=== PATIENT | male | born 1970 | race Caucasian/White ===

== ENCOUNTER → 2017-08-08 | Outpatient (CLI) | payer OTHER ==
[~2017-08-08] MED LIST: ASPI81EC PO; BENAML20/5 PO; BRILLINTA PO; CARV3.125 PO; DIAZ5 PO; LISI20 PO; METF500 PO; ONGLYZA PO; OXYACE5T PO
[2017-08-08 11:52] LABS: Creatinine, Urine Random 53.9 mg/dL (27.00-270.00); Protein, Urine Random 19.5 mg/dL (0.0-11.9)
== END ==
LOC: OLS 10:16 → LAB SHORT 10:16
PROVIDERS: Internal Medicine
DX: R80.9 Proteinuria, unspecified (principal)
CPT/HCPCS: 82570; 84156

== ENCOUNTER 2018-05-09 10:35 | Emergency (ER) | payer OTHER ==
[~2018-05-09] VITALS: Ht 182.9 cm; Wt 120.2 kg
[2018-05-09 12:54] LABS: Hematocrit 44.7 % (37.0-53.0); Hemoglobin 15.5 g/dL (13.5-17.5); Mean Corpuscular HGB 31.8 pg (26.0-34.0); Mean Corpuscular HGB Conc 34.7 g/dL (31.5-36.5); Mean Corpuscular Volume 92 fL (80-100); Mean Platelet Volume 9.1 fL (9.1-12.4); Platelet Count 162 K/mm3 (150-400); RDW Coefficient Variation 11.9 % (11.7-14.2); Red Blood Cell Count 4.88 M/mm3 (4.30-5.90); White Blood Cell Count 9.87 K/mm3 (4.00-11.30)
[2018-05-09 13:15] LABS: Alanine Aminotransfer (ALT/SGP 35 U/L (12-78); Albumin, Blood 3.9 g/dL (3.4-5.0); Albumin/Globulin Ratio 1.2 (0.8-1.8); Alk Phos 73 U/L (50-136); Anion Gap 8 mmol/L (6-16); Aspartate Aminotrans (AST/SGOT 18 U/L (12-37); Bilirubin, Total 0.7 mg/dL (0.1-1.0); Blood Urea Nitrogen 22 mg/dL (8-24); Bun/Creatinine Ratio 19.1 (12.0-20.0); CO2, Blood 26 mmol/L (21-32); Chloride, Blood 106 mmol/L (98-108); Creatinine, Blood 1.15 mg/dL (0.60-1.20); Globulin, Blood 3.3 g/dL (2.2-4.0); Glomerular Filtration Rate >60 (60-); Glucose, Blood 135 mg/dL (70-99); Potassium, Blood 3.9 mmol/L (3.5-5.5); Sodium, Blood 140 mmol/L (136-145); Total Protein, Blood 7.2 g/dL (6.4-8.2)
[2018-05-09 13:56] LABS: BAND PERCENT MAN 8 % (0-8); BASOPHILS PERCENT MAN 0 % (0-2); EOSINOPHILS PERCENT MAN 0 % (0-6); LYMPHOCYTES ABSOLUTE MAN 0.59 K/mm3 (0.84-5.20); LYMPHOCYTES PERCENT MAN 6 % (21-46); MONOCYTES ABSOLUTE MAN 0.29 K/mm3 (0.16-1.47); MONOCYTES PERCENT MAN 3 % (4-13); NEUTROPHILS ABSOLUTE MAN 8.98 K/mm3 (1.96-9.15); SEG NEUTROPHILS PERCENT MAN 83 % (41-73); TOTAL CELLS COUNTED 100
[2018-05-09 16:07] LABS: Influenza A Negative (NEGATIVE); Influenza B Negative (NEGATIVE)
[2018-05-09 16:17] LABS: Source, Urine Voided
[2018-05-09 16:19] LABS: Bilirubin, Urine Neg (Neg); Blood, Urine Neg (Neg); Glucose Qualitative, Urine 3+ (Neg); Ketones, Urine 2+ (Neg); Leukocyte Esterase, Urine 1+ (Neg); Nitrite, Urine Neg (Neg); Protein, Urine 3+ (Neg); Specific Gravity, Urine 1.015 (1.003-1.022); Urobilinogen, Urine NORM (Normal)
[2018-05-09 16:26] LABS: Appearance, Urine Hazy (Clear); Color, Urine Yellow (P-Yellow)
[2018-05-09 16:27] LABS: Calcium Oxalate Crystals Many /hpf
[2018-05-09 16:28] LABS: Bacteria Few /hpf; Red Blood Cells, Urine 0-2 /hpf (0-2); Squamous Epithelial Cells Not Seen /hpf (Few); White Blood Cells, Urine 0-2 /hpf (0-5)
== END 2018-05-09 16:55 | disposition home or self-care (01) ==
LOC: ER 10:35
PROVIDERS: Emergency Medicine
DX: K80.80 Other cholelithiasis without obstruction (principal); I25.10 Atherosclerotic heart disease of native coronary artery without angina pectoris; E11.65 Type 2 diabetes mellitus with hyperglycemia; R42 Dizziness and giddiness; Z79.84 Long term (current) use of oral hypoglycemic drugs; Z79.82 Long term (current) use of aspirin; Z79.899 Other long term (current) drug therapy; I10 Essential (primary) hypertension; I25.2 Old myocardial infarction
CPT/HCPCS: 36415; 71046; 76705; 80053; 81001; 83690; 85025; 87086; 87804; 93005; 93010; 96361; 96374; 99284-25; J0780; J7030

== ENCOUNTER 2021-11-14 08:40 | Day surgery (SDC) | payer OTHER ==
[~2021-11-14] VITALS: Ht 182.9 cm; Wt 122.7 kg
[~2021-11-14 08:40] MED LIST changes: +ALPR1 PO; +Azor 5-40 MG T1 EACH PO; +BUPR150ER PO; +CLOP75 PO; +ELFOLATE7.5 MG PO; +LITH300ER PO; +METF500C PO; +NITR.4SL SL; +OZEMPIC2 MG/0.75; +PRAM.125 PO
[2021-11-14] MEDS ORDERED: ATOR40TA PO (09:27)
[2021-11-14] MEDS ORDERED: METOPROLOL SUCC25 MG PO (09:28)
--- NOTE | 2021-11-14 12:37 | NUR ---
PT BACK IN RECOVERY FROM [facility]. FAMILY AT BEDSIDE. DR WANG AT BEDSIDE DSICUSSING PLAN OF CARE.
--- NOTE | 2021-11-14 13:55 | NUR ---
2 cc removed from tr band. no bleeding noted. site around band soft and non-tender per pt.
--- NOTE | 2021-11-14 14:05 | NUR ---
2cc removed from band. no bleeding noted. site soft and non-tender.
--- NOTE | 2021-11-14 14:16 | NUR ---
2cc removed from tr band. no bleeding noted. site soft and non-tender.
--- NOTE | 2021-11-14 14:47 | NUR ---
tr band fully deflated. no bleeding noted. site soft and non-tender.
--- NOTE | 2021-11-14 15:34 | NUR ---
pt given dc instructions and verbalized understanding. iv out. tr band removed. cloth dot placed. arm board and sling applied. pt taken to car via [place] by cielo jeong and pt's manda.
== END 2021-11-14 15:00 | disposition home or self-care (01) ==
LOC: MHTC 08:40
DX: T82.855A Stenosis of coronary artery stent, initial encounter (principal); Y71.8 Miscellaneous cardiovascular devices associated with adverse incidents, not elsewhere classified; I25.82 Chronic total occlusion of coronary artery; I25.118 Atherosclerotic heart disease of native coronary artery with other forms of angina pectoris; I10 Essential (primary) hypertension; E11.9 Type 2 diabetes mellitus without complications; G47.33 Obstructive sleep apnea (adult) (pediatric); E78.5 Hyperlipidemia, unspecified; Z79.82 Long term (current) use of aspirin; Z79.899 Other long term (current) drug therapy
CPT/HCPCS: 76937; 93306; 93454; 99152; A9270; C1769; C1887; C1894; J1644; J2250; J3010; J7030; J7050; Q9967

== ENCOUNTER 2022-11-27 10:24 | Day surgery (SDC) | payer OTHER ==
[~2022-11-27] VITALS: Ht 182.9 cm; Wt 128.9 kg
[~2022-11-27 10:24] MED LIST changes: +ATOR40TA PO; +METOPROLOL SUCC25 MG PO
[2022-11-27] MEDS ORDERED: JARDIANCE10 MG (11:22)
[2022-11-27 14:20] VITALS: BP 145/90
== END 2022-11-27 14:18 | disposition home or self-care (01) ==
LOC: ORSCSDS 10:24
PROVIDERS: Surgery
PROC: 0DBP8ZX Excision of Rectum, Via Natural or Artificial Opening Endoscopic, Diagnostic (ICD-10-PCS; principal; 2022-11-27 11:45)
PROC: 0DBH8ZX Excision of Cecum, Via Natural or Artificial Opening Endoscopic, Diagnostic (ICD-10-PCS; principal; 2022-11-27 11:45)
PROC: 0DBL8ZX Excision of Transverse Colon, Via Natural or Artificial Opening Endoscopic, Diagnostic (ICD-10-PCS; principal; 2022-11-27 11:45)
DX: Z12.11 Encounter for screening for malignant neoplasm of colon (principal); Z80.0 Family history of malignant neoplasm of digestive organs; D12.0 Benign neoplasm of cecum; D12.3 Benign neoplasm of transverse colon; D12.8 Benign neoplasm of rectum; G47.33 Obstructive sleep apnea (adult) (pediatric); I25.10 Atherosclerotic heart disease of native coronary artery without angina pectoris; I25.2 Old myocardial infarction; I10 Essential (primary) hypertension; E78.5 Hyperlipidemia, unspecified; E11.9 Type 2 diabetes mellitus without complications; Z98.84 Bariatric surgery status; F32.A Depression, unspecified; Z79.899 Other long term (current) drug therapy; Z79.82 Long term (current) use of aspirin; Z79.84 Long term (current) use of oral hypoglycemic drugs; E66.9 Obesity, unspecified; Z68.39 Body mass index [BMI] 39.0-39.9, adult; F31.9 Bipolar disorder, unspecified
CPT/HCPCS: 82947; 88305; J2704; J7120

== ENCOUNTER 2023-07-27 14:37 | Emergency (ER) | payer OTHER ==
[~2023-07-27] VITALS: Ht 182.9 cm; Wt 124.7 kg
[~2023-07-27 14:37] MED LIST changes: +JARDIANCE10 MG
[2023-07-27 14:41] VITALS: BP 201/102
[2023-07-27] MEDS ORDERED: METO100ER PO (15:51)
[2023-07-27] MEDS ORDERED: OLMESARTAN MEDO40 MG PO (15:51)
[2023-07-27] MEDS ORDERED: JARDIANCE25 MG PO (15:51)
[2023-07-27] MEDS ORDERED: ALPRAZOLAM110 PO (15:52)
[2023-07-27] MEDS ORDERED: Diphth,Pertuss(Acell),Tet Vac 0.5 ML VIAL IM ONE (17:10)
== END 2023-07-27 17:37 | disposition home or self-care (01) ==
LOC: ER 14:37
DX: S61.411A Laceration without foreign body of right hand, initial encounter (principal); S61.011A Laceration without foreign body of right thumb without damage to nail, initial encounter; S65.111A Laceration of radial artery at wrist and hand level of right arm, initial encounter; I10 Essential (primary) hypertension; E11.9 Type 2 diabetes mellitus without complications; I25.2 Old myocardial infarction; W25.XXXA Contact with sharp glass, initial encounter; Y93.89 Activity, other specified; Z79.82 Long term (current) use of aspirin; Z79.899 Other long term (current) drug therapy; Z79.84 Long term (current) use of oral hypoglycemic drugs
CPT/HCPCS: 12002; 73130; 90471; 90715; 99283-25

== ENCOUNTER 2024-11-17 13:54 | Day surgery (SDC) | payer OTHER ==
[~2024-11-17] VITALS: Ht 182.9 cm; Wt 137.3 kg
[~2024-11-17 13:54] MED LIST changes: +ACET500 PO; +ALPRAZOLAM110 PO; +AMLO10 PO; +AUVELITY ER 451 EACH PO; +Aspir 8181 MG PO; +DEPLIN FC7.5 MG PO; +DERMACINRX FOL1 EAC2 PO; +JARDIANCE25 MG PO; +METO100ER PO; +OLMESARTAN MEDO40 MG PO; +OMEP20ER PO; +TERA5 PO; +TRULICITY0.75 MG/01 SC; +Terazosin HCl10 MG; +[UNRECOGNIZED DRUG - OTHER] PO
[2024-11-17 14:53] VITALS: BP 158/92
--- NOTE | 2024-11-17 15:12 | NUR ---
Ambulatory in Day Surgery. History, Chart, Medications and Allergies reviewed before start of procedure. Lungs clear T/O to Auscultation. Patient confirms NPO status and agrees with scheduled surgery. Pre-Op teaching done. Pt verbalizes understanding. Patient States Post-Procedure ride home has been arranged.
--- NOTE | 2024-11-17 15:12 | NUR ---
PT DIFFICULT IV START, MULTIPLE RN ATTEMPT.
[2024-11-17] MEDS ORDERED: Glycopyrrolate 0.2 MG/ML 1MLVIAL ONE (15:55)
--- NOTE | 2024-11-17 15:58 | NUR ---
11/17/24 1558 Carlos Huff MONITOR INTACT WITH CONTINUOUS PULSE OXIMETRY, CONTINUOUS END TITAL CO2, 3-LEAD EKG AND INTERMITTENT BLOOD PRESSURE. History, Chart, Medications and Allergies reviewed before start of procedure. 3-LEAD EKG REVIEWED WITH PHYSICIAN PRIOR TO START OF PROCEDURE. O2 VIA POM INTACT THROUGHOUT SEDATION/PROCEDURE.
[2024-11-17 16:45] VITALS: BP 150/84
--- NOTE | 2024-11-17 16:46 | NUR ---
REPORT RECEIVED FROM CRYSTAL DUNHAM. VSS. PT ON RA. PT [id number]&OX4. PT ABLE TO REPOSITION SELF IN BED. PT REQUESTING PO FLUIDS AND TOLERATING THEM WELL. PT DENIES PAIN, NAUSEA OR OTHER DISCOMFORTS.
[2024-11-17 16:55] VITALS: BP 152/93
== END 2024-11-17 17:12 | disposition home or self-care (01) ==
LOC: ORSCSDS 13:54 → ORSCMMR 13:56 → ORSCSDS 15:00
PROVIDERS: Surgery
PROC: 0DBL8ZX Excision of Transverse Colon, Via Natural or Artificial Opening Endoscopic, Diagnostic (ICD-10-PCS; principal; 2024-11-17 15:00)
PROC: 0DBK8ZX Excision of Ascending Colon, Via Natural or Artificial Opening Endoscopic, Diagnostic (ICD-10-PCS; principal; 2024-11-17 15:00)
PROC: 0DBN8ZX Excision of Sigmoid Colon, Via Natural or Artificial Opening Endoscopic, Diagnostic (ICD-10-PCS; principal; 2024-11-17 15:00)
DX: Z12.11 Encounter for screening for malignant neoplasm of colon (principal); Z86.0100 Personal history of colon polyps, unspecified; Z80.0 Family history of malignant neoplasm of digestive organs; D12.2 Benign neoplasm of ascending colon; D12.3 Benign neoplasm of transverse colon; D12.5 Benign neoplasm of sigmoid colon; G47.33 Obstructive sleep apnea (adult) (pediatric); Z98.84 Bariatric surgery status; I25.2 Old myocardial infarction; I10 Essential (primary) hypertension; I25.10 Atherosclerotic heart disease of native coronary artery without angina pectoris; E11.9 Type 2 diabetes mellitus without complications; F32.A Depression, unspecified; Z79.84 Long term (current) use of oral hypoglycemic drugs; Z79.85 Long-term (current) use of injectable non-insulin antidiabetic drugs; Z79.899 Other long term (current) drug therapy; Z79.82 Long term (current) use of aspirin; E66.01 Morbid (severe) obesity due to excess calories; Z68.41 Body mass index [BMI] 40.0-44.9, adult
CPT/HCPCS: 82947; 88305; J2704; J7120